=== PATIENT | male | born 2000 | race Caucasian/White ===

== ENCOUNTER 2022-04-11 19:15 | Emergency (ER) | payer SELFPAY ==
[2022-04-11] MEDS ORDERED: Acetaminophen 500 MG Tab PO ONE (19:51)
[2022-04-11] MEDS ORDERED: Ibuprofen 800 MG Tab PO ONE (19:51)
[2022-04-11] MEDS ORDERED: Cephalexin 500 MG Cap PO STA (19:51)
== END 2022-04-11 20:15 | disposition home or self-care (01) ==
LOC: FB.ED 19:15
DX: L03.114 Cellulitis of left upper limb (principal)
CPT/HCPCS: 99283; A9270-GY